=== PATIENT | male | born 1935 | race Caucasian/White ===

== ENCOUNTER 2023-07-20 16:03 | Emergency (ER) | payer MEDICAID ==
[~2023-07-20] VITALS: Ht 170.2 cm; Wt 67.7 kg
[2023-07-20] MEDS: meclizine 12.5mg tablet PO ONE (16:21)
[2023-07-20 16:28] LABS: BASOPHILS % (AUTO) 0.5 % (0-1); EOSINOPHILS # (AUTO) 0.3 X10'3 (0-0.9); EOSINOPHILS % (AUTO) 4.2 % (0-6); HEMATOCRIT 46.6 % (42.0-52.0); HEMOGLOBIN 15.7 g/dl (14.0-17.9); LYMPHOCYTES # (AUTO) 2.5 X10'3 (1.1-4.8); LYMPHOCYTES % (AUTO) 30.5 % (21-51); MEAN CORPUSCULAR HEMOGLOBIN 32.7 PG (27.0-31.0); MEAN CORPUSCULAR HGB CONC 33.7 g/dL (33.0-36.5); MEAN CORPUSCULAR VOLUME 96.9 FL (78-98); MEAN PLATELET VOLUME 8.4 FL (7.4-10.4); MONOCYTES # (AUTO) 0.7 X10'3 (0-0.9); MONOCYTES % (AUTO) 8.1 % (2-12); NEUTROPHILS # (AUTO) 4.6 X10'3 (1.8-7.7); NEUTROPHILS % (AUTO) 56.7 % (42-75); PLATELET COUNT 254 X10'3 (140-440); RED BLOOD COUNT 4.81 X10'6 (4.70-6.10); RED CELL DISTRIBUTION WIDTH 14.2 % (11.5-14.5)
[2023-07-20 16:50] LABS: ALBUMIN 4.2 G/DL (3.4-5.0); ANION GAP 10 (8-16); BLOOD UREA NITROGEN 11 MG/DL (7-18); BUN/CREATININE RATIO 10.2 (10.0-20.0); CALCIUM 8.8 MG/DL (8.5-10.1); CHLORIDE 100 MMOL/L (99-107); CREATININE 1.08 MG/DL (0.60-1.10); PRO BRAIN NATRIURETIC PEPTIDE 306 PG/ML (0-450); SODIUM 135 MMOL/L (135-145); TOTAL CARBON DIOXIDE 24.7 MMOL/L (24-32); eCRCL 45 ML/MIN; eGFR 65 ML/MIN
[2023-07-20 17:32] LABS: GLUCOSE 220 MG/DL (70-104); POTASSIUM 4.7 MMOL/L (3.5-5.1)
[2023-07-20 17:39] VITALS: BP 206/98; PULSE 75; RESP 19; O2SAT 99
[2023-07-20] MEDS ORDERED: MECL-302 PO (18:15)
[2023-07-20] MEDS ORDERED: BENA-7 PO (18:15)
[2023-07-20 18:28] VITALS: TEMP 98.5
== END 2023-07-20 18:30 | disposition home or self-care (01) ==
LOC: ER 16:04
DX: R42 Dizziness and giddiness (principal); I10 Essential (primary) hypertension; Z91.018 Allergy to other foods
CPT/HCPCS: 36415; 71045; 80048; 83880; 84484; 85025; 93005; 99285; J8597

== ENCOUNTER 2023-11-14 19:55 | Emergency (ER) | payer MEDICAID ==
[~2023-11-14] VITALS: Ht 160 cm; Wt 67.2 kg
[~2023-11-14 19:55] MED LIST: BENA-7 PO; MECL-302 PO
[2023-11-14] MEDS: predniSONE 20 mg tablet PO ONE (20:38)
[2023-11-14] MEDS: valacyclovir 500mg tablet PO SCH (20:39)
[2023-11-14] MEDS ORDERED: PRED20TA PO (20:57)
[2023-11-14] MEDS ORDERED: VALA100031 PO (20:57)
[2023-11-14 21:10] VITALS: BP 183/98; PULSE 108; RESP 26; TEMP 97.9; O2SAT 98
== END 2023-11-14 21:15 | disposition home or self-care (01) ==
LOC: ER 19:56
DX: G51.0 Bell's palsy (principal); E78.00 Pure hypercholesterolemia, unspecified; I10 Essential (primary) hypertension; E11.9 Type 2 diabetes mellitus without complications; Z91.018 Allergy to other foods; Z79.899 Other long term (current) drug therapy
CPT/HCPCS: 82948; 99283; J7512